=== PATIENT | female | born 1940 | race Caucasian/White ===

== ENCOUNTER 2018-06-21 08:32 | Outpatient (CLI) | payer MEDICARE, BC ==
--- NOTE | 2018-06-21 11:41 | CT ---
ABDOMEN CT WITH CONTRAST PELVIC CT WITH CONTRAST: HISTORY: Lower abdominal pain. Left-sided pain radiating to the back, x 1 year. Previous hysterectomy. COMPARISON: None. FINDINGS: ABDOMEN CT: Calcified granuloma in the right lower lobe. Normal heart size. No significant pericardial fluid. The descending thoracic aorta and abdominal aorta have a normal caliber. No periaortic fat stranding . Gallbladder is unremarkable. Portal vein is patent. Appropriate attenuation of the liver, spleen, p ancreas, and adrenal glands. No gastrohepatic, retrocrural, or periportal lymphadenopathy. Ill-defined mixed attenuation density in the upper pole of the right kidney with ill-defined borders, possibly measuring 2.4 x 2.9 x 3.0 cm. Findings may represent multiple adjacent cysts versus a mixe d solid and cystic mass. Better interrogation with abdomen MRI is recommended. Bilaterally, no obst ructive uropathy. Nonobstructing calcification in the lower pole of the left kidney. Small umbilical hernia containing mesenteric fat. No mesenteric mass, lymphadenopathy, free air, or free fluid. Limited evaluation of the alimentary canal due to the lack of oral contrast administration. No evide nce of bowel obstruction. Ileocecal junction is normal. Appendix is not appreciated. No inflammati on of the cecal apex. Unremarkable colon. CT PELVIS: No mass, lymphadenopathy, free air, or fluid. The uterus is surgically absent. Unremarkable urinary bladder. No lytic or blastic lesions in the osseous structures. IMPRESSION: Mixed attenuation mass in the upper pole of the left kidney which may represent a collection of adjac ent cysts versus a mixed solid and cystic mass. Better interrogation with abdomen MRI is recommended . CODE T POS: [facility]
== END 2018-06-21 08:33 | disposition home or self-care (01) ==
LOC: SCSCT 08:32
PROVIDERS: ATTEND Family Medicine
DX: R10.30 Lower abdominal pain, unspecified (principal); N28.89 Other specified disorders of kidney and ureter
CPT/HCPCS: 74177

== ENCOUNTER 2018-07-06 09:30 | Outpatient (CLI) | payer MEDICARE, BC ==
--- NOTE | 2018-07-06 11:45 | CT ---
FCT of the abdomen and pelvis with and without contrast: 07/06/2018 COMPARISON: 06/11/2018 HISTORY: Hematuria, suspicious mass noted on prior CT examination within the anterior superior aspect of the left kidney. TECHNIQUE: Axial CT imaging obtained at 5 mm intervals from lung bases through pubic symphysis with a nd without contrast using a CT urogram protocol. Coronal reformatted imaging obtained FINDINGS: Coronary arterial calcification noted, partially imaged on this exam. Imaged lung bases are unremarkable. Noncontrast enhanced imaging demonstrates no evidence for nephrolithiasis or obstructi ve uropathy on either side. The liver, gallbladder, spleen, pancreas, and adrenal glands are unremarkable. The right kidney is unremarkable. There is a lesion within the anterior upper pole of the left kidney measuring 2.9 cm in transverse di mension. Precontrast Hounsfield units in this region are approximately 21. On portal venous phase césar ging, Hounsfield units are approximately 98 and on the urographic phase imaging, Hounsfield units are approximately 71. This is consistent with a hypervascular enhancing mass lesion, representing renal cell carcinoma until proven otherwise. This lesion measures approximately 2.6 cm in craniocaudal dim ension and extends into the superior aspect of the renal collecting system on coronal imaging. There is a low density probable cystic component of this lesion along its superior margin. The vascular structures of the abdomen/pelvis appear patent. There is atherosclerotic calcification o f the abdominal aorta, particularly the infrarenal abdominal aorta. No lymphadenopathy is noted within the abdomen or pelvis. The bowel appears grossly unremarkable. Urographic phase imaging demonstrates no evidence for obstruc tive uropathy. Lower lumbar spine facet hypertrophy noted. No worrisome lytic or blastic bone lesions. IMPRESSION: Enhancing lesion in the upper pole of the left kidney highly suspicious for renal cell ca rcinoma.
== END 2018-07-06 09:31 | disposition home or self-care (01) ==
LOC: SCSCT 09:30
PROVIDERS: ATTEND Urology
DX: R31.9 Hematuria, unspecified (principal); N28.89 Other specified disorders of kidney and ureter; R10.9 Unspecified abdominal pain
CPT/HCPCS: 74178; 82565

== ENCOUNTER 2018-07-20 09:03 | Outpatient (CLI) | payer MEDICARE, BC ==
[2018-07-20] MEDS ORDERED: Iopamidol 370 76% 100 ML VIAL ONE (10:23)
--- NOTE | 2018-07-20 10:40 | CT ---
CT CHEST WITH IV CONTRAST: 07/20/2018 PROVIDED CLINICAL HISTORY: Renal mass. CORRELATION: CT abdomen and pelvis from 07/06/2018. FINDINGS: Vascular calcification, including coronary calcium, is demonstrated. The heart, pericardium, and gre at vessels demonstrate an otherwise unremarkable CT appearance. There is no evidence for thoracic lymph node enlargement. Calcified right hilar lymph nodes are seen . The lungs are free of significant opacity. No pleural thickening, pleural fluid, or pneumothorax oziel arent. The airway appears patent and of normal caliber. The visualized portions of the upper abdomen demonstrate a stable CT appearance with respect to 07/06. The osseous structures demonstrate no concerning lytic or blastic lesions. IMPRESSION: 1. No evidence for thoracic metastatic disease. 2. Vascular calcification, including coronary calcium. POS: [facility]
--- NOTE | 2018-07-20 13:54 | NM ---
NM Bone Scan STANDARD HISTORY: Left renal malignancy COMPARISON: None. RADIOPHARMACEUTICAL: 33 mCi technetium 99m-MDP injected intravenously FINDINGS: Correlation is made with the CT scan of the chest dated 07/20/[address] scan of the abdomen and pelv is dated 07/24/2018. Increased uptake in the shoulders, elbows, hands, knees, ankles, feet and the lower lumbar spine are consistent with degenerative changes. No other abnormal areas of tracer localization is seen to suggest osseous metastatic disease. Tracer excretion through the kidneys is within normal limits. IMPRESSION: No scintigraphic evidence of osseous metastatic disease.
== END 2018-07-20 09:04 | disposition home or self-care (01) ==
LOC: CT 09:03
PROVIDERS: ATTEND Urology
DX: N28.89 Other specified disorders of kidney and ureter (principal); I70.0 Atherosclerosis of aorta; I25.10 Atherosclerotic heart disease of native coronary artery without angina pectoris
CPT/HCPCS: 71260; 78306; 82565; A9503; Q9967

== ENCOUNTER 2018-09-06 01:58 | Outpatient (CLI) | payer MEDICARE, BC ==
--- NOTE | 2018-09-06 09:41 | RAD ---
RADIOGRAPH CHEST 2 VIEW: DATE: 09/06/2018 HISTORY: 77-year-old female left renal malignancy. FINDINGS: There is no airspace density, pulmonary edema, pleural effusion, or pneumothorax. No suspicious pulmo nary mass is identified. IMPRESSION: No acute pulmonary findings.
[2018-09-06 09:58] LABS: Hemoglobin 13.6 g/dL (12.0-16.0); Mean Corpuscular HGB CONC 33.7 g/dL (32.0-36.0); Mean Corpuscular Hemoglobin 31.1 pg (27.0-31.0); Mean Corpuscular Volume 92.3 fL (78.0-98.0); Mean Platelet Volume 7.3 fL (7.4-10.4); Platelet Count 190 thou/uL (130-400); RBC Distribution Width 12.4 % (11.5-14.5); Red Blood Cell (RBC) Count 4.37 mill/uL (4.20-5.40)
[2018-09-06 10:06] LABS: PTT 27.4 SEC (22.9-36.1); Prothrombin Time 13.3 SEC (12.0-14.7)
[2018-09-06 10:20] LABS: Bilirubin Negative (Negative); Blood, Urine Negative (Negative); Clarity CLOUDY (Clear); Glucose, Urine (Dipstick) Negative (Negative); Leukocyte Negative (Negative); Nitrite Negative (Negative); Protein, Urine (Dipstick) Negative (Neg-Trace); Specific Gravity, Urine 1.018 (1.002-1.036); Urobilinogen 0.2 mg/dL (0.2-1.0)
[2018-09-06 10:22] LABS: Bacteria/HPF None Seen HPF (None Seen); Hyaline Casts/LPF 7-10 HYALINE CAST LPF (0-3 Hyaline); Pathc Cast-AUWi Flag 2.44 (0-2.49); WBC/HPF 0-3 HPF (0-3)
[2018-09-06 10:26] LABS: Anion Gap 11 mmol/L (10-20); BUN (Urea Nitrogen) 15 mg/dL (9.8-20.1); Calc. Creatinine Clearance 0 mL/min (70-130); Carbon Dioxide 24 mmol/L (23-31); Chloride 109 mmol/L (98-107); Estimated GFR-MDRD 52; Glucose 106 mg/dL (83-110); Potassium 3.8 mmol/L (3.5-5.1); Sodium 140 mmol/L (136-145)
--- NOTE | 2018-09-06 17:23 | EKG ---
Test Reason : Blood Pressure : / mmHG Vent. Rate : 081 BPM Atrial Rate : 081 BPM P-R Int : 180 ms QRS Dur : 084 ms QT Int : 398 ms P-R-T Axes : 062 021 002 degrees QTc Int : 462 ms Normal sinus rhythm Possible Inferior infarct , age undetermined Abnormal ECG No previous ECGs available Confirmed by POLO MARTINEZ, DR. Rosa ([id number]) on 09/06/2018 5:23:27 PM Referred By: GARETH Confirmed By:DR. Moe CUELLAR MD
== END 2018-09-06 01:59 | disposition home or self-care (01) ==
LOC: LABBT 01:58
PROVIDERS: ATTEND Urology
DX: Z01.818 Encounter for other preprocedural examination (principal); N28.89 Other specified disorders of kidney and ureter
CPT/HCPCS: 71046; 80048; 81001; 85027; 85610; 85730; 87086; 93005; 93010

== ENCOUNTER 2018-09-21 02:51 | Emergency (ER) | payer MEDICARE, BC ==
[2018-09-21] MEDS ORDERED: Ondansetron PF 4 MG/2 ML Vial ONE (04:44)
[2018-09-21 04:55] LABS: #Eosinphils 0.1 thou/uL (0.0-0.7); #Lymphocytes 1.5 thou/uL (1.20-3.40); #Monocytes 0.6 thou/uL (0.11-0.59); %Basophils 0.5 % (0.0-1.0); %Eosinophils 1.5 % (0.0-10.0); %Monocytes 6.4 % (0.0-10.0); %Neutrophils 75.6 % (42.0-75.0); Hemoglobin 10.4 g/dL (12.0-16.0); Mean Corpuscular HGB CONC 33.5 g/dL (32.0-36.0); Mean Corpuscular Hemoglobin 31.2 pg (27.0-31.0); Mean Corpuscular Volume 93.4 fL (78.0-98.0); Mean Platelet Volume 7.2 fL (7.4-10.4); Platelet Count 244 thou/uL (130-400); RBC Distribution Width 12.3 % (11.5-14.5); Red Blood Cell (RBC) Count 3.34 mill/uL (4.20-5.40); White Blood Cell (WBC) Count 9.2 thou/uL (4.8-10.8)
[2018-09-21 05:03] LABS: ALT (SGPT) 54 U/L (8-55); AST (SGOT) 48 U/L (5-34); Albumin 3.5 g/dL (3.4-4.8); Alkaline Phosphatase 90 U/L (40-150); Anion Gap 14 mmol/L (10-20); BUN (Urea Nitrogen) 11 mg/dL (9.8-20.1); Bilirubin, Total 0.6 mg/dL (0.2-1.2); Calc. Creatinine Clearance 0 mL/min (70-130); Calcium 9.3 mg/dL (7.8-10.44); Carbon Dioxide 23 mmol/L (23-31); Chloride 104 mmol/L (98-107); Estimated GFR-MDRD 31; Glucose 96 mg/dL (83-110); Potassium 3.8 mmol/L (3.5-5.1); Protein, Total 6.5 g/dL (6.0-8.3); Sodium 137 mmol/L (136-145)
[2018-09-21 05:18] LABS: Bilirubin Negative (Negative); Blood, Urine Negative (Negative); Clarity CLEAR (Clear); Glucose, Urine (Dipstick) Negative (Negative); Leukocyte Negative (Negative); Nitrite Negative (Negative); Protein, Urine (Dipstick) Negative (Neg-Trace); Specific Gravity, Urine 1.005 (1.002-1.036); Urobilinogen 0.2 mg/dL (0.2-1.0); pH, Urine 5.5 (5.0-9.0)
--- NOTE | 2018-09-21 07:42 | CT ---
CT abdomen pelvis without contrast Final report: I agree with the report given by Dr. Valentino Cervantes
== END 2018-09-21 06:09 | disposition home or self-care (01) ==
LOC: ERS 02:51
DX: R11.2 Nausea with vomiting, unspecified (principal); R19.7 Diarrhea, unspecified; I10 Essential (primary) hypertension; Z79.899 Other long term (current) drug therapy
CPT/HCPCS: 74176; 74177; 80053; 81003; 85025; 96361; 96374; J2405

== ENCOUNTER 2019-10-17 09:27 | Outpatient (CLI) | payer MEDICARE, BC ==
--- NOTE | 2019-10-17 11:55 | RAD ---
PA AND LATERAL VIEWS CHEST: Date: 10/17/2019 HISTORY: Clear cell carcinoma of left kidney. COMPARISON: 09/06/2018. FINDINGS: The heart size is normal. The aorta is tortuous. The lungs are well expanded without focal areas of c onsolidation, pneumothoraces, mass, or pleural effusions. There is continued elevation of the right h emidiaphragm. There are mild degenerative changes in the spine. IMPRESSION: Stable exam. No acute process. POS: [facility]
== END 2019-10-17 09:28 | disposition home or self-care (01) ==
LOC: RAD 09:27
PROVIDERS: ATTEND Urology
DX: C64.2 Malignant neoplasm of left kidney, except renal pelvis (principal)
CPT/HCPCS: 71046

== ENCOUNTER 2020-05-16 10:25 | Emergency (ER) | payer MEDICARE, BC ==
[2020-05-16 13:02] LABS: #Basophils 0.1 thou/uL (0.0-0.2); #Eosinphils 0.1 thou/uL (0.0-0.7); #Lymphocytes 2.9 thou/uL (1.20-3.40); #Monocytes 0.6 thou/uL (0.11-0.59); %Basophils 0.9 % (0.0-1.0); %Eosinophils 1.4 % (0.0-10.0); %Lymphocytes 33.6 % (21.0-51.0); %Monocytes 6.4 % (0.0-10.0); %Neutrophils 57.8 % (42.0-75.0); Hemoglobin 13.3 g/dL (12.0-16.0); Mean Corpuscular HGB CONC 33.1 g/dL (32.0-36.0); Mean Corpuscular Hemoglobin 30.6 pg (27.0-31.0); Mean Corpuscular Volume 92.5 fL (78.0-98.0); Mean Platelet Volume 7.8 fL (7.4-10.4); Platelet Count 210 thou/uL (130-400); RBC Distribution Width 12.3 % (11.5-14.5); Red Blood Cell (RBC) Count 4.33 mill/uL (4.20-5.40); White Blood Cell (WBC) Count 8.7 thou/uL (4.8-10.8)
[2020-05-16 13:16] LABS: Bilirubin Negative (Negative); Blood, Urine Negative (Negative); Clarity Clear (Clear); Glucose, Urine (Dipstick) Normal (Negative); Ketone, Urine Negative (Negative); Leukocyte Negative Leu/uL (Negative); Nitrite Negative (Negative); Protein, Urine (Dipstick) Negative (Neg-Trace); Urobilinogen Normal mg/dL (Less than 2)
[2020-05-16 13:24] LABS: ALT (SGPT) 22 U/L (8-55); AST (SGOT) 27 U/L (5-34); Albumin 4.3 g/dL (3.4-4.8); Alkaline Phosphatase 87 U/L (40-110); Anion Gap 16 mmol/L (10-20); BUN (Urea Nitrogen) 21 mg/dL (9.8-20.1); Bilirubin, Total 0.7 mg/dL (0.2-1.2); Calc. Creatinine Clearance 0 mL/min (70-130); Calcium 9.6 mg/dL (7.8-10.44); Carbon Dioxide 24 mmol/L (23-31); Chloride 106 mmol/L (98-107); Globulin 3.1 g/dL (2.4-3.5); Glucose 98 mg/dL (83-110); Protein, Total 7.4 g/dL (5.8-8.1); Sodium 141 mmol/L (136-145)
--- NOTE | 2020-05-16 14:00 | CT ---
Exam: Abdomen CT without contrast Pelvic CT without contrast HISTORY: Left upper quadrant pain COMPARISON: 09/21/2018 FINDINGS: Abdomen CT: Lung bases:Clear Heart size: Normal heart size. No significant pericardial fluid. There are coronary calcifications Aorta: Atherosclerosis. No periaortic fat stranding Solid organs: Limited evaluation by the absence of IV contrast. Hypoattenuation of the liver suggesti ng hepatic steatosis with areas of fatty sparing. Lymph nodes: No gastrohepatic, retrocrural or periportal lymphadenopathy Gallbladder: Cholelithiasis, without evidence of cholecystitis Mesentery: No mass, lymphadenopathy, free air or free fluid Kidneys: Surgically absent left kidney. No evidence of right-sided obstructive uropathy. Alimentary canal: Limited evaluation of the alimentary canal by the absence of oral contrast. Multipl e normal caliber small bowel loops. Normal ileocecal junction. Appendix is not appreciated. No inflammation of the cecal apex. Decompressed colon. CT PELVIS: No mass, adenopathy, free air or free fluid. Surgically absent uterus Urinary bladder: Unremarkable. Osseous structures: There are no lytic or blastic lesions in the osseous structures. Multilevel degen erative changes of the lumbar spine. There is vacuum disc phenomenon IMPRESSION: 1. Surgically absent left kidney 2. No acute abnormality in the abdomen or pelvis. 3. Cholelithiasis, without evidence of cholecystitis
== END 2020-05-16 14:26 | disposition home or self-care (01) ==
LOC: ERS 10:25
DX: R10.12 Left upper quadrant pain (principal); I12.9 Hypertensive chronic kidney disease with stage 1 through stage 4 chronic kidney disease, or unspecified chronic kidney disease; Z79.899 Other long term (current) drug therapy; V47.5XXA Car driver injured in collision with fixed or stationary object in traffic accident, initial encounter; N18.4 Chronic kidney disease, stage 4 (severe)
CPT/HCPCS: 36415; 74176; 80048; 80061; 81003; 84443; 85025

== ENCOUNTER 2021-10-23 07:59 | Outpatient (CLI) | payer MEDICARE, BC | END 2021-10-23 08:00 | disposition home or self-care (01) | LOC: BICULT 07:59 | PROVIDERS: ATTEND Urology | DX: N28.9 Disorder of kidney and ureter, unspecified (principal); Z90.5 Acquired absence of kidney; Z85.528 Personal history of other malignant neoplasm of kidney | CPT/HCPCS: 76770 ==